=== PATIENT | male | born 1995 | race Caucasian/White ===

== ENCOUNTER 2017-01-13 12:50 | Emergency (ER) | payer OTHER ==
[~2017-01-13] VITALS: Ht 182.9 cm; Wt 79.4 kg
[2017-01-13 16:47] VITALS: BP 146/75
== END 2017-01-13 18:01 | disposition home or self-care (01) ==
LOC: M ED 14:03
DX: F41.9 Anxiety disorder, unspecified (principal); G47.9 Sleep disorder, unspecified; Z87.891 Personal history of nicotine dependence

== ENCOUNTER 2018-11-11 23:01 | Inpatient (IN) | payer OTHER ==
[~2018-11-11] VITALS: Ht 175.3 cm; Wt 84.0 kg
[2018-11-12 00:21] LABS: HEMATOCRIT 46.3 % (42.0-52.0); HEMOGLOBIN 15.6 g/dl (13.5-17.5); MEAN CORPUSCULAR HGB CONC 33.7 g/dl (32.0-36.5); PLATELET COUNT, AUTOMATED 296 10^3/uL (150-450); WHITE BLOOD COUNT 5.5 10^3/uL (4.0-10.0)
[2018-11-12 00:52] LABS: AMPHETAMINES LEVEL URINE NEGATIVE (NEGATIVE); BARBITURATES URINE NEGATIVE (NEGATIVE); BENZODIAZEPINES URINE NEGATIVE (NEGATIVE); CANNABINOIDS URINE NEGATIVE (NEGATIVE); COCAINE METABOLITE URINE NEGATIVE (NEGATIVE); METHADONE URINE NEGATIVE (NEGATIVE); OPIATES URINE NEGATIVE (NEGATIVE); PHENCYCLIDINE URINE NEGATIVE (NEGATIVE)
[2018-11-12 01:07] LABS: ALBUMIN 4.7 GM/DL (3.2-5.2); ALT/SGPT 36 U/L (12-78); BILIRUBIN,DIRECT 0.1 MG/DL (0.0-0.2); BILIRUBIN,TOTAL 0.3 MG/DL (0.2-1.0); BLOOD UREA NITROGEN 10 MG/DL (7-18); CALCIUM LEVEL 8.7 MG/DL (8.5-10.1); CARBON DIOXIDE LEVEL 26 MEQ/L (21-32); CHLORIDE LEVEL 108 MEQ/L (98-107); CREATININE FOR GFR 1.12 MG/DL (0.70-1.30); ETHYL ALCOHOL (ETHANOL) 0.202 % (0.000-0.010); GLOMERULAR FILTRATION RATE > 60.0 (>60); GLUCOSE, FASTING 101 MG/DL (70-100); POTASSIUM SERUM 4.4 MEQ/L (3.5-5.1); SALICYLATE LEVEL < 1.7 MG/DL (5.0-30.0); SODIUM LEVEL 143 MEQ/L (136-145); TOTAL PROTEIN 8.7 GM/DL (6.4-8.2)
[2018-11-12 01:08] LABS: ACETAMINOPHEN LEVEL < 2.0 UG/ML (10.0-30.0)
[2018-11-12] MEDS ORDERED: ACETAMINOPHEN TAB 650MG DOSE (2X325MG) PO PRN (14:45)
[2018-11-12] MEDS ORDERED: MOM 30ML SUSPENSION UDC PO PRN (14:45)
[2018-11-12] MEDS ORDERED: OLANZapine ORAL DISINTEGRATING TAB 5MG PO PRN (14:45)
[2018-11-12] MEDS ORDERED: MAALOX 30 ML SUSP *UDC PO PRN (14:45)
[2018-11-12 16:59] VITALS: BP 140/86
[2018-11-12] MEDS: NICOTINE 21MG/24HR 1 EA TRANSDERMAL TD SCH (17:20)
[2018-11-13 06:42] VITALS: BP 114/71
[2018-11-13] MEDS: NICOTINE 21MG/24HR 1 EA TRANSDERMAL TD SCH (09:00)
--- NOTE | 2018-11-13 11:00 | MHHPE ---
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 HISTORY OF PRESENT ILLNESS: Per reported from the emergency room, he was brought police ([place]) who stated that he [place] himself [place]. Then he had a knife and three bystanders were holding him down. Upon arrival to the emergency room, he denied any suicidal ideas. However, he admitted to drinking a lot of alcohol. During my evaluation, he reported that he got drunk. He was stressed out because of work in the and was not able to see his finance for a long time. Stressed out and had 12 cans of beers and told his friend that he wanted to kill himself who reported him to the MP and he was brought to the hospital. He reports he is not depressed. His sleep and appetite are good. Energy level is good. Denies any history of amberly or psychosis. Patient has a history of anxiety in the past. He was treated with medication and now he does not have any anxiety symptoms. CURRENT MEDICATIONS: Denies using any medications now. ALLERGIES: No known drug allergies. PAST PSYCHIATRIC HISTORY: Never been admitted to a psychiatric hospitals. However he had an anxiety attack and was brought to the emergency room once and discharged, offered some medication which he declined. DRUG AND ALCOHOL HISTORY: Patient has a history of alcohol problem. However, patient denies that he has a dependence. He drinks about twice a week about a 12-pack of beer. Denies use of any other drugs. SUICIDAL IDEAS: Denies any suicide attempts. PAST MEDICAL HISTORY: Denies medical problems. FAMILY HISTORY: He denies family history of mental illness. PERSONAL HISTORY: He was raised by his mother. He has four brothers and one sister. He dropped out of school when he was an 11th grader. Completed GED. For the last 3-1/2 years, he has been in [employer]. Denies any history of physical or sexual abuse. MENTAL STATUS EXAMINATION: Appearance: Patient is in the hospital dress with good personal hygiene. Cooperative. Made good eye contact. Speech: Rate, rhythm and volume are good. Thought process: Linear goal directed. Mood is mildly depressed. Affect is appropriate for the mood. Though content: Denies any suicidal or homicidal ideas. Denied any delusions. Denied any auditory or visual hallucinations. Cognition: He is alert and oriented to time, place and person. Memory: Immediate, remote and recent are good. Insight and judgment are fair to limited. VITAL SIGNS: Temperature 98.8, pulse 91, respiratory rate 12, blood pressure 114/71. LABS: CBC within normal limits. CMP within normal limits. Urine toxicology was negative. However, his blood alcohol level was 0.202. REVIEW OF SYSTEMS: CONSTITUTIONAL: Negative for night sweats and weight loss. HEENT: Negative for epistaxis, headache, hearing loss, sore throat. RESPIRATORY: No cough, no shortness of breath. No wheezing. CARDIOVASCULAR: Negative for chest pain, dyspnea on exertion. GASTROINTESTINAL: No abdominal pain. No change in bowel habits. GENITOURINARY: No dysuria. No trouble voiding. MUSCULOSKELETAL: Negative for gait disturbances. General pain or joint pain. NEUROLOGICAL: Negative for gait disturbances, numbness or tingling or dizziness. All other systems are negative. DIAGNOSES: Depressive disorder unspecified. Rule out substance induced mood disorder. Alcohol use disorder. TREATMENT/RECOMMENDATION: 1. The patient is admitted to inpatient mental health unit (IM). 2. He will be followed up by python developer for medical needs. 3. He will be seen by high school social studies teacher and case management. 4. Patient will be placed on appropriate precautions. Elopement precaution, fall precaution and 15-minute checks. 5. Patient will participate in all appropriate activities to include individual group and milieu therapy. Patient will be provided with psychoeducation. 6. Medications: The patient refused to take any medications. Since patient did not have any suicide attempts in the past or any psychiatric hospitalization. Having not taken any psychotropic medications and his suicidal gesture is consistent with substance abuse mood disorder, I would like to observe him. Continue all the psychotherapy. Estimated length of stay 4-5 days. I will get more collaterals.
--- NOTE | 2018-11-13 11:17 | HPEPDOC ---
General Date of Admission Nov 12, 2018 at 14:41 Chief Complaint The patient is a 23-year-old male who Presented to the ER with complaints of suicidal ideation after he was intoxicated with alcohol. History of Present Illness Patient is a 23-year-old male with no significant past medical history who presented to [facility] for suicidal ideation after he was intoxicated with alcohol. Lesion does not recall any specific suicidal ideation. Remarks however, was noted by observers to have made them. Patient has noted that this is the first time hes ever made such remarks and has never experienced any suicidal ideation in the past. Hospitalist services consultation for medical management. And the patient denies any headache, nausea, vomiting, chest pain, shortness of breath, cough, palpitations, abdominal pain, constipation, diarrhea or discomfort with urination. Patient has noted that his appetite has been fairly decent and has denied any significant change in his weight. 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 Review of Systems Other systems 10 point review of systems complete, all negative otherwise stated in HPI Vital Signs - Vitals: BP 114/71, HR 91, RR 12, Sat 99%RA, Temp 97.8 - General: Lying in bed, No acute distress, Speaking in full sentences, AAOx3 - HEENT: NC, AT, PERRLA, EOMI - CVS: RRR, +S1S2 - Lungs: Fair air entry bilaterally, Clear to auscultation, No wheezing / rales / rhonchi - Abdomen: Soft, Non-distended, Non-tender - Extremities: No lower extremity edema, No calf tenderness - Neuro: No focal motor or sensory deficit - Skin: No visible rashes Plan / VTE VTE Prophylaxis Ordered?: Yes Plan Plan Suicidal ideation while intoxicated with alcohol - Presented to [facility] for suicidal ideation while intoxicated with alcohol - Patient is indicated that this is the first time he has had reported suicidal ideation - Currently being managed by psychiatry There do not appear to be any acute medical problems that require urgent attention - Please reconsult as needed DVT prophylaxis - c/w early ambulation Inpatient mental health unit staff was present in the examination room at the time of this exam RACHEAL JACKSON MD Nov 13, 2018 11:17
[2018-11-13 18:00] VITALS: BP 146/76
[2018-11-14 06:57] VITALS: BP 122/57
[2018-11-14] MEDS: NICOTINE 21MG/24HR 1 EA TRANSDERMAL TD SCH (09:00)
--- NOTE | 2018-11-14 13:54 | MHIPN ---
DATE: 11/14/2018 SUBJECTIVE: "I'm feeing fine and I have substance abuse problem. 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 Reportedly he tried to hang himself with a belt, which the patient declined during the evaluation. He was intoxicated and when he came to the emergency room his blood alcohol level was high. Currently he is doing better. His sleep and appetite are good. MENTAL STATUS EXAMINATION: Appearance causally dressed with good personal hygiene. Cooperative. Made good eye contact. Psychomotor activity is normal. Mood is euthymic. Affect is appropriate for the mood. Speech rate, rhythm and volume are good. Thought process is linear, goal directed. Thought content denied any suicidal or homicidal ideas. Denied any paranoid or bizarre delusions. He is alert and oriented to time, place and person. Memory is intact. Insight and judgment are fair. DIAGNOSES: Depressive disorder, unspecified. Rule out substance induced mood disorder. Alcohol use disorder. PLAN: Continue individual and group therapy. Continue monitoring the patient. Continue current medications. The patient will be discharged tomorrow.
[2018-11-14 18:00] VITALS: BP 128/70
[2018-11-15 06:43] VITALS: BP 110/67
[2018-11-15] MEDS: NICOTINE 21MG/24HR 1 EA TRANSDERMAL TD SCH (08:15)
--- NOTE | 2018-11-15 09:22 | MHDS ---
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 For details of history of present illness (HPI), past psychiatric history, drug/alcohol history, medical history, social history, family history, please refer to the initial evaluation. HOSPITAL COURSE: The patient reported that he was drinking a lot of alcohol. He almost blacked out. He thinks that he has never attempted suicide. As reported, he tried to hang himself and had a knife with him. The bystanders were holding him down. However, patient denies that he never thought of committing suicide but admits to alcohol problems. He refused to take any medications. The patient started attending groups and activities. When he was admitted his blood alcohol was 0.206, which clearly shows he was intoxicated. He attended groups and activities. He was provided with group individual and milieu therapy also. Psychoeducation was done. He made a quick recovery. His depression resolved. His sleep improved. His isolation decreased. He denied any side effect of any medications. Denied any suicidal or homicidal ideas. He was stable at time of discharge. MENTAL STATUS EXAMINATION: Casually dressed with good personal hygiene with clean clothes. Cooperative. Made good eye contact. Psychomotor activity is normal. Speech, rate and volume are good. Denies auditory or visual hallucinations. Denies suicidal or homicidal ideas. He is alert, oriented to time, place and person. His memory, immediate, remote, and recent are good. Insight and judgment are good. VITAL SIGNS: Temperature 97.5, pulse 65, respiratory rate 14, blood pressure 110/67. DIAGNOSES: Depressive disorder not otherwise specified. Rule out substance induced mood disorder. Alcohol use disorder. MEDICATIONS: The patient currently is on no medications. PLAN: The plan is to send him home. Patient will go back to [place]. He will be followed up by behavioral health clinic on [place]. [place]
== END 2018-11-15 09:20 | disposition home or self-care (01) | DRG 881 ==
LOC: M ED 23:01 → M ED INP 11-12 14:41 → M PSY 11-12 16:33
PROVIDERS: ADMIT Psychiatry & Neurology Psychiatry; ATTEND Psychiatry & Neurology Psychiatry
DX: F32.9 Major depressive disorder, single episode, unspecified (principal); R45.851 Suicidal ideations; F10.10 Alcohol abuse, uncomplicated; F19.94 Other psychoactive substance use, unspecified with psychoactive substance-induced mood disorder